=== PATIENT | female | born 1995 | race Caucasian/White ===

== ENCOUNTER 2017-05-02 13:45 | Observation (INO) | payer OTHER ==
[~2017-05-02] VITALS: Ht 160 cm; Wt 81.6 kg
[2017-05-02 14:42] VITALS: BP 113/62
[2017-05-02] MEDS ORDERED: TERBUTALINE 1 MG/ML VIAL SUBQ SCH (14:45)
[2017-05-02] MEDS ORDERED: TERBUTALINE 1 MG/ML VIAL SUBQ ONE (14:58)
[2017-05-02] MEDS ORDERED: LACO50TA PO (15:02)
[2017-05-02] MEDS ORDERED: LEVE750T3 PO (15:02)
[2017-05-02] MEDS ORDERED: PREN-380 PO (15:02)
[2017-05-02] MEDS ORDERED: LACTATED RINGERS 1,000 ML IV SCH (16:40)
[2017-05-02] MEDS ORDERED: BETAMETH ACET/BETAMETH NA PH 30 MG/5 ML VIAL IM SCH (17:00)
[2017-05-02] MEDS ORDERED: TERBUTALINE 2.5 MG TAB PO SCH (18:00)
== END 2017-05-02 18:25 | disposition left against medical advice (07) ==
LOC: MLD 13:45 → MFCC 17:13
PROVIDERS: ADMIT Obstetrics & Gynecology; ATTEND Obstetrics & Gynecology
DX: O26.893 Other specified pregnancy related conditions, third trimester (principal); R10.9 Unspecified abdominal pain; M54.9 Dorsalgia, unspecified; Z3A.32 32 weeks gestation of pregnancy
CPT/HCPCS: 76805; G0378; J3105; Q0092; 96372

== ENCOUNTER 2017-06-25 23:35 | Inpatient (IN) | payer OTHER ==
[~2017-06-25] VITALS: Ht 160 cm; Wt 84.0 kg
[~2017-06-25 23:35] MED LIST: IBUP-1801 PO; LACO50TA PO; LEVE750T3 PO; PREN-380 PO
[2017-06-25 23:43] VITALS: BP 142/85
--- NOTE | 2017-06-26 00:35 | NUR ---
PT AMBULATED TO ER BED 06
--- NOTE | 2017-06-26 00:37 | NUR ---
21 Y/O F W/C/O HEADACHE. S/P ON 06/22, [facility]. ER MADE AWARE.
--- NOTE | 2017-06-26 00:41 | NUR ---
ER AT BEDSIDE
[2017-06-26] MEDS ORDERED: ONDANSETRON 4 MG ODT PO ONE (00:45)
[2017-06-26] MEDS ORDERED: KETOROLAC 30 MG/ML VIAL IM ONE (00:45)
[2017-06-26] MEDS ORDERED: CYCLOBENZAPRINE 10 MG TAB PO ONE (01:15)
[2017-06-26] MEDS ORDERED: NACL 0.9% 1,000 ML IV ONE (01:35)
[2017-06-26 01:41] LABS: BASOPHILS # (AUTO) 0.1 K/uL (0.00-0.22); BASOPHILS % (AUTO) 1.7 % (0.0-2.0); EOSINOPHILS # (AUTO) 0.2 K/uL (0-0.4); EOSINOPHILS % (AUTO) 3.1 % (0.0-4.0); HEMATOCRIT 34.2 % (36-48); LYMPHOCYTES # (AUTO) 1.1 K/uL (2.5-16.5); LYMPHOCYTES % (AUTO) 16.1 % (20.5-51.1); MEAN CORPUSCULAR HEMOGLOBIN 29 pg (27-31); MEAN CORPUSCULAR HGB CONC 32 g/dL (33-37); MEAN CORPUSCULAR VOLUME 91 fL (80-94); MONOCYTES # (AUTO) 0.6 K/uL (0.8-1.0); NEUTROPHILS % (AUTO) 70.1 % (42.2-75.2); PLATELET COUNT (AUTO) 276 K/uL (140-450); RED BLOOD CELL COUNT(AUTO) 3.76 MIL/uL (4.20-5.40); RED CELL DISTRIBUTION WIDTH 13.1 % (11.6-13.7)
[2017-06-26 01:43] LABS: APPEARANCE,URINE CLEAR (CLEAR); BILIRUBIN,URINE NEGATIVE (NEGATIVE); BLOOD, URINE 3+ (NEGATIVE); COLOR,URINE YELLOW (YELLOW); LEUKOCYTE ESTERASE ,URINE NEGATIVE (NEGATIVE); NITRITE, URINE NEGATIVE (NEGATIVE); UGLUCOSE NEGATIVE (NEGATIVE)
[2017-06-26 01:51] LABS: CARBON DIOXIDE 26.4 mmol/L (21-32); CREATININE 0.6 mg/dL (0.6-1.3); POTASSIUM 3.4 mmol/L (3.5-5.1)
[2017-06-26 01:57] LABS: ALBUMIN 2.5 g/dL (3.4-5.0); TOTAL BILIRUBIN 0.5 mg/dL (0.0-1.0)
[2017-06-26 02:14] LABS: RBC,URINE 0-5 (RARE) /HPF (0-5); WBC,URINE 0-5 (RARE) /HPF (0-5)
--- NOTE | 2017-06-26 03:14 | NUR ---
PT RESTING IN BED, VSS.
[2017-06-26] MEDS ORDERED: MORPHINE SULFATE 4 MG/ML SYR IVP ONE (03:25)
[2017-06-26] MEDS ORDERED: ONDANSETRON 4 MG/2 ML VIAL IVP PRN (04:00)
[2017-06-26] MEDS ORDERED: KETOROLAC 30 MG/ML VIAL IVP PRN (04:00)
[2017-06-26] MEDS ORDERED: ACETAMINOPHEN 325 MG TAB PO PRN (04:00)
[2017-06-26] MEDS ORDERED: DEXT 5% / NACL 0.45% 1,000 ML IV SCH (04:00)
--- NOTE | 2017-06-26 05:32 | NUR ---
PT ASLEEP, VSS, NO S/S OF PAIN OR DISTRESS NOTED AT THE MOMENT.
--- NOTE | 2017-06-26 06:48 | NUR ---
Patient will be admitted to care of DR GOLDSMITH. Admited to MED SURG. Will go to room 104. Belongings list completed. Report to NIDHI, CHARGE NURSE RN.
--- NOTE | 2017-06-26 07:05 | NUR ---
pt trasfered to floor via gurney. Accompanied by emt.
--- NOTE | 2017-06-26 07:30 | NUR ---
RECEIVED PT IN BED, AWAKE, ALERT ORIENTEDX4 NO SOB NOTED. DENIES ANY PAIN OR DISCOMFORT NOTED AT THIS TIME. PT AMBULATORY. ABDOMINAL DRESSING DRY AND INTACT. SAFETY PRECAUTION IN PLACE, CALL LIGHT WITHIN REACH.
[2017-06-26 08:00] VITALS: BP 124/59
[2017-06-26 12:00] VITALS: BP 111/86
--- NOTE | 2017-06-26 13:30 | NUR ---
DISCHARGE INSTRUCTIONS AND PT TEACHINGS GIVEN AND EXPLAINED TO PT. PT VERBALIZED UNDERSTANDING. REMINDED TO FOLLOW UP WITH PCP WITHIN 1 WEEK. PT SIGNED DISCHARGE PAPERS. IV CANNULA REMOVED AND INTACT. PHOTO TAKEN FOR LOWER ABD SURGICAL WOUND S/P , AND IN TO CHART. NAME ARMBAND REMOVED. NO SOB NOTED. PT DENIES ANY PAIN OR DISCOMFORT AT THIS TIME. PT VERBALIZED THAT SHE ALREADY CALL HER BOYFRIEND AND WILL MEET HER AT THE PARKING LOT. PT WHEELED OUT GOING TO THE HOSPITAL PARKING LOT TO MEET BOYFRIEND. TO THEIR PRIVATE OWNED VEHICLE. PT DISCHARGED ON STABLE CONDITION.
--- NOTE | 2017-06-26 15:22 | NUR ---
CM NOTE INITIAL REVIEW FAXED TO [facility] [phone]
== END 2017-06-26 13:35 | disposition home or self-care (01) | DRG 561 ==
LOC: MED 23:35 → MMU 06-26 03:15 → MTU 06-26 04:50
PROVIDERS: ADMIT Internal Medicine Pulmonary Disease; ATTEND Hospitalist
DX: O89.4 Spinal and epidural anesthesia-induced headache during the puerperium (principal); G40.909 Epilepsy, unspecified, not intractable, without status epilepticus
CPT/HCPCS: 36415; 80053; 81001; 85025; 96361; 96372; 96374; 99285; J1885; J2270; J7030; S0119

== ENCOUNTER 2018-11-12 02:35 | Emergency (ER) | payer OTHER ==
[~2018-11-12] VITALS: Ht 160 cm; Wt 81.6 kg
[2018-11-12 02:36] VITALS: BP 127/77
--- NOTE | 2018-11-12 02:36 | NUR ---
Pt ambulated to bed 2 with vss.
--- NOTE | 2018-11-12 02:53 | NUR ---
PT TO ED WITH C/O A SEIZURE AND WAKING UP SCREAMING. PT STATES HER NORMAL SEIZURE ACTIVITY IS SCREAMING. NO POSTITCAL S/S. ALERT TO NAME, BIRTHDAY, PLACE, AND EVENT. SEIZURE PADS IN PLACE, ATTATCHED TO MONITORS. PT PLACED INTO BED, ER MD AT BEDSIDE. PMH--EPILEPSY RX--GRISELDA ARAUJO
[2018-11-12 03:12] LABS: BASOPHILS % (AUTO) 0.4 % (0.0-2.0); EOSINOPHILS % (AUTO) 0.6 % (0.0-4.0); HEMATOCRIT 41.1 % (36-48); LYMPHOCYTES % (AUTO) 25.5 % (20.5-51.1); MEAN CORPUSCULAR HEMOGLOBIN 25 pg (27-31); MEAN CORPUSCULAR HGB CONC 32 g/dL (33-37); MEAN CORPUSCULAR VOLUME 77.5 fL (80-94); MONOCYTES # (AUTO) 0.7 K/uL (0.8-1.0); MONOCYTES % (AUTO) 8.1 % (1.7-9.3); NEUTROPHILS # (AUTO) 5.2 K/uL (1.8-7.7); NEUTROPHILS % (AUTO) 65.4 % (42.2-75.2); PLATELET COUNT (AUTO) 283 K/uL (140-450); RED CELL DISTRIBUTION WIDTH 15.6 % (11.6-13.7)
[2018-11-12 03:24] LABS: ANION GAP 8.5 (8-16); CARBON DIOXIDE 31.7 mmol/L (21-32); CREATININE 0.8 mg/dL (0.6-1.3); POTASSIUM 3.2 mmol/L (3.5-5.1)
[2018-11-12 03:27] LABS: ALBUMIN 4.7 g/dL (3.4-5.0); TOTAL BILIRUBIN 0.4 mg/dL (0.0-1.0)
[2018-11-12] MEDS ORDERED: POTASSIUM CHLORIDE 10 MEQ TABER PO ONE (03:30)
[2018-11-12 03:39] LABS: BARBITURATE, URINE NEG. ng/ml (NEG <=200); BENZODIAZEPINE, URINE NEG. ng/mL (NEG <=200); CANNABINOID, URINE NEG. ng/mL (NEG <=50); COCAINE, URINE NEG. ng/mL (NEG <=300); OPIATE, URINE NEG. ng/mL (NEG <=2000); PHENCYCLIDINE SCREEN,URINE NEG. ng/mL (NEG <=25)
[2018-11-12 03:43] LABS: APPEARANCE,URINE CLEAR (CLEAR); BILIRUBIN,URINE NEGATIVE (NEGATIVE); BLOOD, URINE TRACE-I (NEGATIVE); COLOR,URINE YELLOW (YELLOW); LEUKOCYTE ESTERASE ,URINE NEGATIVE (NEGATIVE); NITRITE, URINE NEGATIVE (NEGATIVE); UGLUCOSE NEGATIVE (NEGATIVE)
[2018-11-12 03:47] LABS: CALCIUM OXALATE CRYSTALS,UR 0-10 /HPF (None Seen); RBC,URINE 0-5 (RARE) /HPF (0-5); WBC,URINE 0-5 (RARE) /HPF (0-5)
[2018-11-12 03:53] VITALS: BP 127/77
--- NOTE | 2018-11-12 03:53 | NUR ---
Patient discharged with v/s stable. Written and verbal after care instructions given and explained. Patient verbalized understanding. Ambulatory with steady gait. All questions addressed prior to discharge. Advised to follow up with PMD.
== END 2018-11-12 03:53 | disposition home or self-care (01) ==
LOC: MED 02:35
DX: R56.9 Unspecified convulsions (principal); E87.6 Hypokalemia; Z79.899 Other long term (current) drug therapy
CPT/HCPCS: 36415; 80053; 80173; 80305; 81001; 85025; 99283

== ENCOUNTER 2018-11-12 08:58 | Emergency (ER) | payer OTHER ==
[~2018-11-12] VITALS: Ht 160 cm; Wt 86.2 kg
--- NOTE | 2018-11-12 08:58 | NUR ---
PT BIBA BLS TO ER BED 12
[2018-11-12 09:00] VITALS: BP 124/88
--- NOTE | 2018-11-12 09:05 | NUR ---
Pt. brought in by ems from home pt's grandmother called after pt in restroom screaming "wants baby out". pt does not know her last menses. denies visual/auditoy hallucinations; denies suicidal/homicidal ideations. Pt. denies any bleeding, denies any n/v/d. denies any fever or chills. no pain at this time. --seen in our ER this morning for break through seizure. er md made aware. safety precautions implemented. will continue to monitor.er md made aware.
--- NOTE | 2018-11-12 10:45 | NUR ---
PT. UNABLE TO PROVIDE URINE SAMPLE AT THIS TIME, ER MD DILLON MADE AWARE
--- NOTE | 2018-11-12 11:14 | NUR ---
PER DR. ADAMES TELEPSYCH INITIATED AT THIS TIME
[2018-11-12 11:25] VITALS: BP 126/86
--- NOTE | 2018-11-12 11:25 | NUR ---
TELEPSYCH AT BEDSIDE MONITOR IN PLACE.
--- NOTE | 2018-11-12 11:53 | NUR ---
PT. STATES " I WANT TO BE DISCHARGED I DO NOT WANT THE CONSULT, MY GRANDMOTHER IS GOING TO PICK ME UP". ER MD ADAMES MADE AWARE.
--- NOTE | 2018-11-12 11:57 | NUR ---
PT. STANDING IN ROOM, CALM AND COOPERATIVE AT THIS TIME. ABLE TO SPEAK IN FULL AND COMPLETE SENTENCES PER PT " MY GRANDMOTHER IS ON HER WAY TO PICK ME UP". ER MD DILLON MADE AWARE.
--- NOTE | 2018-11-12 12:31 | NUR ---
PSYCHIATRIST DR. PEÑA CALLED AND SAID " I WILL EXAMINE HER NOW THROUGH TELEPSYCH".
--- NOTE | 2018-11-12 12:38 | NUR ---
DR. PEÑA CALLED AND STATED " SHE IS CLEARED I DO NOT THINK SHE NEEDS A PSYCHIATRIST, SHE NEEDS HER NEUROLOGIST". ER MD DILLON MADE AWARE.
--- NOTE | 2018-11-12 12:47 | NUR ---
PT. LEFT WITHOUT DISCHARGE PAPERWORK AT THIS TIME. ER MD DILLON MADE AWARE AND CHARGE NURSE LOU AGUILAR MADE AWARE.
== END 2018-11-12 12:47 | disposition home or self-care (01) ==
LOC: MED 08:58
DX: F29 Unspecified psychosis not due to a substance or known physiological condition (principal); G40.909 Epilepsy, unspecified, not intractable, without status epilepticus; R44.0 Auditory hallucinations; Z79.899 Other long term (current) drug therapy
CPT/HCPCS: 81025; 99283

== ENCOUNTER 2023-02-26 05:13 | Emergency (ER) | payer OTHER ==
[~2023-02-26] VITALS: Ht 160 cm; Wt 97.5 kg
[2023-02-26 05:18] VITALS: BP 123/72
[2023-02-26 06:17] VITALS: BP 123/72
== END 2023-02-26 06:18 | disposition home or self-care (01) ==
LOC: MED 05:13
DX: R07.0 Pain in throat (principal); G40.909 Epilepsy, unspecified, not intractable, without status epilepticus; Z79.899 Other long term (current) drug therapy
CPT/HCPCS: 99281

== ENCOUNTER 2024-01-20 09:23 | Emergency (ER) | payer OTHER ==
[~2024-01-20] VITALS: Ht 160 cm; Wt 86.2 kg
[2024-01-20 09:30] VITALS: BP 125/78; PULSE 85; RESP 18; TEMP 97.4; O2SAT 99
[2024-01-20] MEDS ORDERED: IBUP-2218 PO (10:32)
[2024-01-20 10:56] VITALS: BP 132/50; PULSE 78; RESP 18; TEMP 98.2; O2SAT 98
== END 2024-01-20 10:57 | disposition home or self-care (01) ==
LOC: MED 09:23
DX: S92.514A Nondisplaced fracture of proximal phalanx of right lesser toe(s), initial encounter for closed fracture (principal); Z79.899 Other long term (current) drug therapy; X58.XXXA Exposure to other specified factors, initial encounter; Y93.89 Activity, other specified; Y92.89 Other specified places as the place of occurrence of the external cause; Y99.8 Other external cause status
CPT/HCPCS: 73660; 99283

== ENCOUNTER 2024-06-23 | Emergency (ER) | payer OTHER ==
[~2024-06-23] VITALS: Ht 160 cm; Wt 93.0 kg
[~2024-06-23] MED LIST changes: +IBUP-2218 PO
[2024-06-23 00:05] VITALS: BP 126/51; PULSE 77; RESP 16; TEMP 98.3; O2SAT 99
[2024-06-23] MEDS ORDERED: AMOX1TAB8 PO (01:06)
[2024-06-23 01:10] VITALS: BP 126/51; PULSE 77; RESP 16; TEMP 98.3; O2SAT 99
== END 2024-06-23 01:10 | disposition home or self-care (01) ==
LOC: MED
DX: J02.9 Acute pharyngitis, unspecified (principal); Z86.69 Personal history of other diseases of the nervous system and sense organs; Z79.899 Other long term (current) drug therapy
CPT/HCPCS: 87081; 99283